=== PATIENT | female | born 1980 | race Caucasian/White ===

== ENCOUNTER 2016-07-22 18:55 | Emergency (ER) | payer MEDICARE ==
[2016-07-23 00:24] LABS: HEMOGLOBIN 13.6 gm/dl (12.3-15.3); RED BLOOD COUNT 4.84 M/UL (4.00-5.10); WHITE BLOOD COUNT 11.3 K/UL (4.5-11.0)
[2016-07-23 00:41] LABS: BUN/CREATININE RATIO 13 (0-10)
== END 2016-07-23 04:55 | disposition home or self-care (01) ==
LOC: ER1 18:55
PROVIDERS: Physician Assistant
DX: N39.0 Urinary tract infection, site not specified (principal); L03.113 Cellulitis of right upper limb; M79.1 Myalgia; R06.02 Shortness of breath; F17.210 Nicotine dependence, cigarettes, uncomplicated
CPT/HCPCS: 36415; 71020; 80053; 81001; 83605; 85025; 86140; 87040; 87077; 87081; 87086; 87186; 87880; 93005; 96361; 96365; 96375; 99284; J1200; J2765; J7030; J7050; Q9963